=== PATIENT | female | born 2000 | race Caucasian/White ===

== ENCOUNTER → 2021-07-14 | Outpatient (CLI) | payer BC, MEDICAID ==
[~2021-07-14] MED LIST: BPR100T PO; LORA5SOL
--- NOTE | 2021-07-14 17:05 | Diagnostic Imaging Report ---
INDICATION: patient, survey. TECHNIQUE: Multiple real-time grayscale images were obtained over the gravid uterus. COMPARISON: None. FINDINGS: A single live intrauterine fetus is seen measuring 19 weeks 5 days in size by composite measurements. The placenta is anterior with no evidence of previa. The fetus is in breech presentation at this time. Amniotic fluid is qualitatively normal. heart rate is 142 bpm. Cervical length is 4.1 cm. Distance from placental tip to the internal os was 6.5 cm. Maternal adnexa could not be well visualized. survey demonstrated normal-appearing kidneys and bladder. Normal-appearing stomach was seen. Intracranial ventricles appear normal in size. Three-vessel cord and cord insertion were normal. Views of the spine were limited due to position. Biometrical measurements are as follows: Biparietal 4.11 cm, age 18 weeks 4 days. Head circumference 17.64 cm, age 20 weeks 1 days. Abdominal circumference 14.99 cm, age 20 weeks 2 days. Femur length 3.06 cm, age 19 weeks 4 days. Sonographic estimate age: 19 weeks 5 days. Sonographic estimated date of delivery: 12/03/2021. Estimated Weight: 317 gm (+/- 46 gm). LMP percentile: 54%. heart rate: 142 beats per minute. number: 1 of 1. IMPRESSION: Single live intrauterine fetus measuring 19 weeks 5 days in size by composite measurements. There is no detectable abnormality. Views of the spine were limited due to position. Consider followup as clinically warranted. Dictated by: Dictated on workstation # [id number]
== END ==
LOC: RAD 15:00
PROVIDERS: ATTEND Obstetrics & Gynecology
DX: Z34.92 Encounter for supervision of normal pregnancy, unspecified, second trimester (principal); Z3A.19 19 weeks gestation of pregnancy
CPT/HCPCS: 76805

== ENCOUNTER → 2021-09-04 | Outpatient (CLI) | payer BC, MEDICAID ==
--- NOTE | 2021-09-04 16:17 | Diagnostic Imaging Report ---
INDICATION: Follow-up spine. TECHNIQUE: Multiple real-time grayscale images were obtained over the gravid uterus. COMPARISON: 07/14/2021. FINDINGS: There is a single live fetus with heart rate of 134 BPM. spine appears unremarkable on today's exam. IMPRESSION: Unremarkable follow-up ultrasound. Dictated by: Dictated on workstation # [id number]
== END ==
LOC: RAD 14:30
PROVIDERS: ATTEND Obstetrics & Gynecology
DX: Z36.89 Encounter for other specified antenatal screening (principal); Z36.1 Encounter for antenatal screening for raised alphafetoprotein level
CPT/HCPCS: 76816

== ENCOUNTER 2021-11-23 19:09 | Inpatient (IN) | payer BC, MEDICAID ==
[2021-11-23] VITALS (13 sets, daily range): BP systolic 118–132; BP diastolic 58–89
[~2021-11-23] VITALS: Ht 162.6 cm; Wt 104.6 kg
[2021-11-23] MEDS ORDERED: IRON1TAB89 PO (19:36)
[2021-11-23] MEDS ORDERED: ONDA4TAB11 PO (19:36)
[2021-11-23 19:43] LABS: BILIRUBIN,URINE NEGATIVE (NEGATIVE); CLARITY,URINE CLEAR; COLOR,URINE YELLOW; GLUCOSE, URINE (UA) NEGATIVE (NEGATIVE); KETONES,URINE TRACE (NEGATIVE); LEUKOCYTE ESTERASE ,URINE TRACE (NEGATIVE); NITRITE,URINE NEGATIVE (NEGATIVE); PROTEIN,URINE TRACE (NEGATIVE)
[2021-11-23 19:51] LABS: BACTERIA,URINE LARGE /HPF
[2021-11-23] MEDS ORDERED: OXYTOCIN PRE-MIX DRIP 500 ML IV SCH (20:15)
[2021-11-23] MEDS ORDERED: D5 LR IV SOLUTION 1,000 ML IV ONE (20:19)
[2021-11-23] MEDS: D5 LR IV SOLUTION 1,000 ML IV SCH (20:45)
[2021-11-23 20:49] LABS: BASOPHILS % (AUTO) 1 % (0-10); EOSINOPHILS # (AUTO) 0.1 10^3/uL (0.0-0.3); EOSINOPHILS % (AUTO) 1 % (0-10); HEMATOCRIT 42 % (35-52); HEMOGLOBIN 13.2 g/dL (11.5-16.0); LYMPHOCYTES # (AUTO) 1.6 10^3/uL (1.0-4.0); LYMPHOCYTES % (AUTO) 25 % (12-44); MEAN CORPUSCULAR HEMOGLOBIN 28 pg (25-34); MEAN CORPUSCULAR HGB CONC 32 g/dL (32-36); MEAN CORPUSCULAR VOLUME 88 fL (80-99); MEAN PLATELET VOLUME 11.1 fL (9.0-12.2); MONOCYTES # (AUTO) 0.4 10^3/uL (0.0-1.0); MONOCYTES % (AUTO) 6 % (0-12); NEUTROPHILS # (AUTO) 4.2 10^3/uL (1.8-7.8); NEUTROPHILS % (AUTO) 66 % (42-75); PLATELET COUNT 212 10^3/uL (130-400); WHITE BLOOD COUNT 6.4 10^3/uL (4.3-11.0)
[2021-11-23] MEDS ORDERED: OXYTOCIN PRE-MIX DRIP 500 ML IV ONE (21:04)
[2021-11-23] MEDS ORDERED: fentaNYL 2 mcg/ml BUPIVA 0.125 100 ML ONE (23:34)
[2021-11-23] MEDS ORDERED: BUPIVACAINE 0.25% 10 ML (SENSORCAINE) VIAL ONE (23:56)
[2021-11-23] MEDS ORDERED: fentaNYL INJ 100 MCG/2 ML AMP ONE (23:56)
[2021-11-24] VITALS (65 sets, daily range): BP systolic 79–136; BP diastolic 42–97
[2021-11-24] MEDS ORDERED: diphenhydrAMINE 50 MG/ML INJ (BENADRYL) IV PRN (00:30)
[2021-11-24] MEDS ORDERED: LACTATED RINGERS 1,000 ML IV SCH (00:30)
[2021-11-24] MEDS ORDERED: EPIDURAL (fentaNYL 2 MCG/ML BUPIVA 0.125%)100 ML BAG EPI PRN ×2 (00:30→03:00)
[2021-11-24] MEDS ORDERED: NALOXONE 0.4 MG/ML 1 ML (NARCAN) VIAL IV PRN ×3 (00:30→07:15)
[2021-11-24] MEDS ORDERED: METOCLOPRAMIDE INJ 10 MG/2 ML (REGLAN) IV PRN (00:30)
[2021-11-24] MEDS ORDERED: ONDANSETRON 4 MG/2 ML (SDV) Z0FRAN IV PRN (00:30)
[2021-11-24] MEDS: D5 LR IV SOLUTION 1,000 ML IV SCH ×2 (00:41→06:33)
[2021-11-24] MEDS ORDERED: LIDOCAINE/EPI 2% 1:200,00 (XYLOCAINE) 10 ML VIAL ONE (07:06)
--- NOTE | 2021-11-24 07:12 | History & Physical-OB ---
OB - Chief Complaint & HPI Date/Time Date of Admission: Date of Admission: Nov 23, 2021 at 20:00 Date seen by a Provider: Nov 24, 2021 Time Seen by a Provider: 07:10 Chief Complaint/History OB-Reason for Admission/Chief: Rupture of Membranes Hx : 1 Hx Para: 0 Expected Date of Delivery: Dec 03, 2021 Gestational Age in Weeks: 38 Gestational Age in Days: 4 Other reason for admission: Patient admitted in active labor after SROM at home. Admission Nurse Assessment Rev: Yes History of Labs A pos Antibody neg RI RPR NR HBsAg NR HIV NR GC neg GBS neg Allergies and Home Medications Allergies Coded Allergies: NKANo Known Allergies (Verified Allergy, Unknown, 01/05/06) Patient Home Medication List Home Medication List Reviewed: Yes Iron,Carbonyl/Ascorbic Acid (Iron 100-Vitamin C Tablet) 100 Mg-250 Mg Tablet, 1 EACH PO, (Reported) Entered as Reported by: JINNY TAN on 11/23/211935 Last Action: New Order Ondansetron (Ondansetron Odt) 4 Mg Tab.rapdis, 4 MG PO, (Reported) Entered as Reported by: JINNY TAN on 11/23/211935 Last Action: New Order Discontinued Medications Bupropion Hcl (Wellbutrin) 100 Mg Tablet, 1 TAB PO DAILY, (Reported) Discontinued Reason: No Longer Taking Entered as Reported by: SHELL PARKS on 07/10/122129 Last Action: Discontinued OB - History Hx of Present Care: Yes Ultrasounds: Normal mid trimester US Obstetrical Complications: None Medical Complications: None Obstetrical History Hx : 1 Delivery History Hx Blood Disorders: No Patient Past Medical History n/a Social History/Family History Alcohol Use: Denies Use Recreational Drug Use: No 2nd Hand Smoke Exposure: No Immunizations Influenza Vaccine Up-to-Date: No; Not Current OB - Admission Exam Physical Exam Vitals: Vital Signs 11/24/21 11/24/21 11/24/21 02:52 03:53 06:07 Temp 36.0 Pulse 76 Resp 18 B/P (MAP) 115/60 (78) Pulse Ox 96 O2 Delivery Room Air HEENT: NCAT Heart: Rhythm Normal Lungs: Clear Abdomen: Gravid Extremities: Normal Reflexes: Normal Cervical Dilatation: 9cm Effacement: 100% Station: 0 Membranes: Ruptured Amniotic Fluid: Clear Heart Rate: 130's Accelerations: Accelerations Present Decelerations: No Decelerations Short Term Variability: Present Skilled Nursing Variability: Average (6-25) Contractions on Admission: < 5 Minutes Apart Intensity: Firm Labs Laboratory Tests Test 11/23/21 19:30 11/23/21 20:30 Range/Units Urine Color YELLOW Urine Clarity CLEAR Urine pH 8.0 5-9 Urine Specific [place] 1.020 1.016-1.022 Urine Protein TRACE H NEGATIVE Urine Glucose (UA) NEGATIVE NEGATIVE Urine Ketones TRACE H NEGATIVE Urine Nitrite NEGATIVE NEGATIVE Urine Bilirubin NEGATIVE NEGATIVE Urine Urobilinogen 1.0 < = 1.0 MG/DL Urine Leukocyte Esterase TRACE H NEGATIVE Urine RBC (Auto) NEGATIVE NEGATIVE Urine RBC 10-25 H /HPF Urine WBC 10-25 H /HPF Urine Squamous Epithelial Cells 10-25 H /HPF Urine Renal Epithelial Cells NONE /HPF Urine Crystals NONE /LPF Urine Bacteria LARGE H /HPF Urine Casts NONE /LPF Urine Mucus LARGE H /LPF Urine Culture Indicated YES Membranes Rupture POSITIVE White Blood Count 6.4 4.3-11.0 10^3/uL Red Blood Count 4.75 3.80-5.11 10^6/uL Hemoglobin 13.2 11.5-16.0 g/dL Hematocrit 42 35-52 % Mean Corpuscular Volume 88 80-99 fL Mean Corpuscular Hemoglobin 28 25-34 pg Mean Corpuscular Hemoglobin Concent 32 32-36 g/dL Red Cell Distribution Width 21.9 H 10.0-14.5 % Platelet Count 212 130-400 10^3/uL Mean Platelet Volume 11.1 9.0-12.2 fL Immature Granulocyte % (Auto) 1 % Neutrophils (%) (Auto) 66 42-75 % Lymphocytes (%) (Auto) 25 12-44 % Monocytes (%) (Auto) 6 0-12 % Eosinophils (%) (Auto) 1 0-10 % Basophils (%) (Auto) 1 0-10 % Neutrophils # (Auto) 4.2 1.8-7.8 10^3/uL Lymphocytes # (Auto) 1.6 1.0-4.0 10^3/uL Monocytes # (Auto) 0.4 0.0-1.0 10^3/uL Eosinophils # (Auto) 0.1 0.0-0.3 10^3/uL Basophils # (Auto) 0.0 0.0-0.1 10^3/uL Immature Granulocyte # (Auto) 0.1 0.0-0.1 10^3/uL OB - Assessment/Plan/Diagnosis Assessment Assessment: active labor Admission Dx 21 yo @ 38 weeks SROM- Active labor GBS neg Admission Status: Inpatient Order (span 2 midnights) Reason for Inpatient Admission: Active labor at 38 weeks Plan Plan: Expectant Management Other Plan Patient admitted last night 1 cm with SROM. Started on minimal pitocin augmentation of 2 mu and progressed overnight after receiving epidural at about 1200am to complete and 0 station this AM. TIFFANY THOMPSON DO Nov 24, 2021 07:12
[2021-11-24] MEDS ORDERED: TETANUS,DIPTH,PERTUSS P/F (BOOSTRIX) 0.5 ML VIAL IM ONE (07:15)
[2021-11-24] MEDS ORDERED: BENZOCAINE/MENTHOL (DERMOPLAST) 56 ML CAN TP PRN (07:15)
[2021-11-24] MEDS ORDERED: HYDROcodone/APAP 5 MG/325 MG (LORTAB) TAB PO PRN (07:15)
[2021-11-24] MEDS ORDERED: MEASLES,MUMPS,RUBELLA 1 EA INJ SQ ONE (07:15)
[2021-11-24] MEDS ORDERED: WITCH HAZEL(TUCKS) 40 EA JAR TOP PRN (07:15)
[2021-11-24] MEDS ORDERED: DIBUCAINE 1% OINTMENT 30 GM TUBE TOP PRN (07:15)
[2021-11-24] MEDS ORDERED: LIDOCAINE 2% 20 ML (XYLOCAINE) VIAL INJ ONE (07:45)
[2021-11-24] MEDS ORDERED: METHYLERGONOVINE 0.2 MG/ML (METHERGINE) AMP ONE (08:01)
--- NOTE | 2021-11-24 08:20 | OB Labor & Delivery Record ---
L&D History Date of Service Date of Service: Nov 24, 2021 History Expected Date of Delivery: Dec 03, 2021 Gestational Age in Weeks: 38 Hx : 1 Hx Para: 0 Complications Events: Routine care Operative Indications (Cesarea: N/A-Vaginal Delivery Intrapartal Events: None L&D Stage1 Stage One Onset of Labor - Date: Nov 24, 2021 Monitors and Tracing Monitor Mode: External Heart Rate: 130 Monitor Accelerations: Uniform Station: 0 Jail Variability: Average (6-10) Short Term Variability: Present Presentation: Vertex Vital Signs VS - Last 72 Hours, by Label 11/23/21 11/23/21 11/23/21 11/23/21 19:41 20:10 20:48 21:11 Temp 37.2 37.2 37.2 36.6 Pulse 117 117 117 91 Resp 20 20 20 20 B/P (MAP) 118/77 (91) 132/82 (99) Pulse Ox 96 96 96 O2 Delivery Room Air Room Air Room Air Room Air 11/23/21 11/23/21 11/23/21 11/23/21 21:25 21:40 21:55 22:10 Pulse 92 90 87 96 Resp 20 20 20 20 B/P (MAP) 131/89 (103) 130/85 (100) 128/80 (96) 128/83 (98) O2 Delivery Room Air Room Air Room Air Room Air 11/23/21 11/23/21 11/23/21 11/23/21 22:25 22:40 22:55 23:10 Pulse 103 88 88 78 Resp 20 20 20 20 B/P (MAP) 126/71 (89) 128/68 (88) 127/66 (86) 124/71 (88) O2 Delivery Room Air Room Air Room Air Room Air 11/23/21 11/24/21 11/24/21 11/24/21 23:30 00:00 00:02 00:05 Temp 36.6 Pulse 104 109 89 93 Resp 20 20 20 20 B/P (MAP) 128/58 (81) 136/97 (110) 129/70 (89) 132/74 (93) Pulse Ox 97 98 O2 Delivery Room Air Room Air Room Air Room Air 11/24/21 11/24/21 11/24/21 11/24/21 00:08 00:11 00:12 00:14 Pulse 100 100 99 100 Resp 20 20 20 20 B/P (MAP) 122/73 (89) 134/64 (87) 122/60 (80) 114/59 (77) Pulse Ox 98 97 98 97 O2 Delivery Room Air Room Air Room Air Room Air 11/24/21 11/24/21 11/24/21 11/24/21 00:19 00:21 00:23 00:27 Pulse 102 105 108 95 Resp 20 20 20 20 B/P (MAP) 113/60 (77) 104/57 (73) 97/56 (70) 106/58 (74) Pulse Ox 98 97 97 97 O2 Delivery Room Air Room Air Room Air Room Air 11/24/21 11/24/21 11/24/21 11/24/21 00:30 00:33 00:37 00:43 Temp 36.0 Pulse 96 86 97 93 Resp 20 20 20 B/P (MAP) 108/60 (76) 107/59 (75) 106/53 (70) Pulse Ox 98 98 99 97 O2 Delivery Room Air Room Air Room Air 11/24/21 11/24/21 11/24/21 11/24/21 01:03 01:10 01:15 01:20 Pulse 99 88 79 129 Resp 20 20 20 20 B/P (MAP) 92/46 (61) 79/42 (54) 87/53 (64) 104/62 (76) Pulse Ox 99 100 97 O2 Delivery Room Air Room Air Room Air Room Air 11/24/21 11/24/21 11/24/21 11/24/21 01:26 01:30 01:36 01:41 Pulse 127 99 93 93 Resp 20 20 20 20 B/P (MAP) 99/56 (70) 109/61 (77) 107/55 (72) 106/56 (73) Pulse Ox 97 97 97 97 O2 Delivery Room Air Room Air Room Air Room Air 11/24/21 11/24/21 11/24/21 11/24/21 01:46 01:50 01:56 02:00 Pulse 87 85 91 92 Resp 18 18 18 18 B/P (MAP) 105/57 (73) 110/57 (74) 107/55 (72) 94/51 (65) Pulse Ox 98 97 97 97 O2 Delivery Room Air Room Air Room Air Room Air 11/24/21 11/24/21 11/24/21 11/24/21 02:06 02:25 02:38 02:52 Pulse 85 83 96 91 Resp 18 18 18 18 B/P (MAP) 108/55 (72) 100/53 (69) 92/52 (65) 87/46 (60) Pulse Ox 96 96 95 96 O2 Delivery Room Air Room Air Room Air Room Air 11/24/21 11/24/21 11/24/21 11/24/21 03:04 03:07 03:22 03:37 Pulse 103 98 101 92 Resp 18 18 18 18 B/P (MAP) 98/51 (67) 101/54 (70) 104/56 (72) 104/57 (73) O2 Delivery Room Air Room Air Room Air Room Air 11/24/21 11/24/21 11/24/21 11/24/21 03:53 04:08 04:24 04:38 Temp 36.0 Pulse 98 88 89 95 Resp 18 18 18 18 B/P (MAP) 111/53 (72) 110/58 (75) 108/58 (75) 107/58 (74) O2 Delivery Room Air Room Air Room Air Room Air 11/24/21 11/24/21 11/24/21 11/24/21 04:52 05:08 05:21 05:37 Pulse 114 100 83 81 Resp 18 18 18 18 B/P (MAP) 89/55 (66) 100/55 (70) 109/60 (76) 110/61 (77) O2 Delivery Room Air Room Air Room Air Room Air 11/24/21 11/24/21 11/24/21 11/24/21 05:51 06:07 06:22 06:37 Pulse 77 76 80 81 Resp 18 18 18 18 B/P (MAP) 113/60 (77) 115/60 (78) 121/62 (81) 116/66 (83) O2 Delivery Room Air Room Air Room Air Room Air 11/24/21 06:53 Pulse 89 Resp 18 B/P (MAP) 124/70 (88) O2 Delivery Room Air Rupture of Membranes Spontaneous Ruture of Membrane: Yes Amniotic Membrane Rupture Time: 1830 Amniotic Membrane Fluid Desc.: Clear Vaginal Bleeding Description: Normal Show Induction/Anesthesia Epidural Cath Placement - Time: 10 Progress/Notes Patient presented in active labor. She progressed to complete and +2 station with minimal augmentation of labor with 2 mu pitocin. She received an epidural at around midnight. L&D Stage2 Monitors and Tracing Monitor Mode: External Heart Rate: 130 Monitor Accelerations: Uniform Monitor Decelerations: Variable Jail Variability: Average (6-10) Short Term Variability: Present Position: Right Occiput Anterior Presentation: Vertex Signs of Distress by FHT Signs of Distress nuchal cord reduced x 1 Cord Descript/Complications Cord Vessel Description: 3 Vessels Delivery Type Infant Delivery Method: Spontaneous Vaginal Anterior Shoulder: Left Episiotomy/Perineal Laceration Laceraction(s)/Extensions: Yes Episiotomy Description: Vaginal Extension/lac Degree (describe repair) vaginal laceration repaired using 3-0 rapide vicryl in usual fashion Condition of Infant Delivery 1 minute Comment: 8 5 minute Comment: 9 Notes Live male weight pending. Condition of Condition of Infant: Living Exam: No Observed Abnormalities Resuscitation Resuscitation: N/A - Spontaneous Resp L&D Stage3 Stage Three Stage III Date: Nov 24, 2021 Pictocin Pitocin Administration mu/min: 2 Pitocin ml/hr: 2 Pitocin Administration Comment: 30 mu wide open after delivery of placenta Placenta Delivery Placenta Delivery: Spontaneous Delivery Summary Summary Estimated blood loss (mL): 300 Attending at delivery: Tiffany Thompson DO Condition of Delivery Examined: Cervix Examined, Uterus Explored Post Hemorrhage: No Condition of Mother stable Condition of (s) stable TIFFANY THOMPSON DO Nov 24, 2021 08:20
--- NOTE | 2021-11-24 08:22 | Discharge Inst-Women's Service ---
Discharge Inst-Women's Serv Depart Medication/Instructions New, Converted or Re-Newed RX: Transmitted to Pharmacy Final Diagnosis PPD 1 NVD Problems Reviewed?: Yes Consults/Follow Up Additional Follow Up: Yes Orders/Referrals Dr. Thompson/ Daniella/Erica in 6 weeks Activity Activity: Activity as Tolerated Driving Instructions: No Driving for 1 Week NO SMOKING: NO SMOKING Nothing Inside Vagina: No Douching, No [place], No Tampons Diet Discharge Diet: No Restrictions Symptoms to Report to : Bleeding Excessive, Pain Increased, Fever Over 101 Degrees F, Vaginal Bleeding Increase, Questions/Concerns For Any Problems or Questions: Contact Your Physician TIFFANY THOMPSON DO Nov 24, 2021 08:22
[2021-11-24] MEDS ORDERED: DOCU100C37 PO (08:24)
[2021-11-24] MEDS ORDERED: BENZ78AE5 TP (08:24)
[2021-11-24] MEDS ORDERED: IBUP-844 PO (08:24)
[2021-11-24] MEDS ORDERED: ACHD5005 PO (08:24)
[2021-11-24] MEDS ORDERED: PNV1TABL67 PO (08:24)
[2021-11-24] MEDS ORDERED: FERR325T24 PO (08:24)
[2021-11-24] MEDS: OXYTOCIN PRE-MIX DRIP 500 ML IV SCH (08:27)
[2021-11-24] MEDS: DOCUSATE SODIUM 100 MG (COLACE) CAP PO SCH ×2 (09:01→19:59)
[2021-11-24] MEDS: FERROUS SULF 325 MG (IRON) TAB PO SCH (09:01)
[2021-11-24] MEDS: IBUPROFEN 600 MG (MOTRIN) TAB PO SCH ×3 (09:02→19:59)
[2021-11-24] MEDS ORDERED: CATHETER FLUSH 10 ML SYR IV SCH (14:00)
[2021-11-25] MEDS: IBUPROFEN 600 MG (MOTRIN) TAB PO SCH ×2 (03:50→10:14)
[2021-11-25 04:00] VITALS: BP 114/61
[2021-11-25] MEDS: OXYTOCIN PRE-MIX DRIP 500 ML IV SCH (05:08)
[2021-11-25 06:23] LABS: HEMOGLOBIN 10.3 g/dL (11.5-16.0); MEAN CORPUSCULAR VOLUME 90 fL (80-99); MEAN PLATELET VOLUME 11.4 fL (9.0-12.2)
[2021-11-25 06:26] LABS: BASOPHILS # (AUTO) 0.1 10^3/uL (0.0-0.1); BASOPHILS % (AUTO) 1 % (0-10); EOSINOPHILS # (AUTO) 0.1 10^3/uL (0.0-0.3); EOSINOPHILS % (AUTO) 1 % (0-10); HEMATOCRIT 33 % (35-52); LYMPHOCYTES # (AUTO) 2.2 10^3/uL (1.0-4.0); LYMPHOCYTES % (AUTO) 26 % (12-44); MEAN CORPUSCULAR HEMOGLOBIN 28 pg (25-34); MEAN CORPUSCULAR HGB CONC 31 g/dL (32-36); MONOCYTES # (AUTO) 0.5 10^3/uL (0.0-1.0); MONOCYTES % (AUTO) 6 % (0-12); NEUTROPHILS # (AUTO) 5.4 10^3/uL (1.8-7.8); NEUTROPHILS % (AUTO) 66 % (42-75); PLATELET COUNT 148 10^3/uL (130-400); WHITE BLOOD COUNT 8.2 10^3/uL (4.3-11.0)
[2021-11-25] MEDS ORDERED: PRENATAL VITAMIN 1 EA TAB PO SCH (07:00)
--- NOTE | 2021-11-25 09:28 | Postpartum Progress Note ---
Note Note Day # 1 Subjective: Patient is without complaints. Ambulating, voiding. Tolerating a regular diet without nausea or vomiting. Normal lochia. Pain is well controlled with oral pain medications. Physical Exam: General - Alert and oriented, no apparent distress Abdomen - Soft, appropriately tender to palpation, non-distended, fundus firm at umbilicus Extremities - no edema, negative Carl's bilaterally Assessment: Post- day # 1, status post vaginal delivery. Recovering well, hemodynamically stable Acute blood loss anemia Plan: Routine care. Encourage breast feeding. Encourage ambulation. Ferrous sulfate supplementation. Plan for discharge today Vitals - Labs Vital Signs - I&O Vital Signs Date Time Temp Pulse Resp B/P (MAP) Pulse Ox O2 Delivery O2 Flow Rate FiO2 11/25/21 04:00 36.0 86 20 114/61 (78) Room Air 11/24/21 23:37 36.5 86 20 104/62 (76) Room Air 11/24/21 20:00 36.5 101 20 113/56 (75) 98 Room Air 11/24/21 16:00 36.5 96 20 113/60 (77) 96 Room Air 11/24/21 13:07 36.0 91 18 128/74 (92) 96 Room Air 11/24/21 10:30 36.3 89 110/59 (76) 11/24/21 10:15 91 112/57 (75) 11/24/21 10:00 88 115/60 (78) 11/24/21 09:45 90 16 110/59 (76) Room Air 11/24/21 09:30 96 114/61 (78) Room Air I & O 11/25/21 07:00 Intake Total 1800 ml Balance 1800 ml Labs Laboratory Tests 11/25/21 05:33: White Blood Count 8.2, Red Blood Count 3.65L, Hemoglobin 10.3#L, Hematocrit 33L, Mean Corpuscular Volume 90, Mean Corpuscular Hemoglobin 28, Mean Corpuscular Hemoglobin Concent 31L, Red Cell Distribution Width 21.6H, Platelet Count 148, Mean Platelet Volume 11.4, Immature Granulocyte % (Auto) 1, Neutrophils (%) (Auto) 66, Lymphocytes (%) (Auto) 26, Monocytes (%) (Auto) 6, Eosinophils (%) (Auto) 1, Basophils (%) (Auto) 1, Neutrophils # (Auto) 5.4, Lymphocytes # (Auto) 2.2, Monocytes # (Auto) 0.5, Eosinophils # (Auto) 0.1, Basophils # (Auto) 0.1, Immature Granulocyte # (Auto) 0.0, Percent Immature Platelet Fraction 7.1 Microbiology 11/23/21 Urine Culture - Preliminary, Resulted Gram Pos Mixed Bacterial Ryann WILIAM LUQUE [employer]AKER [employer] Nov 25, 2021 09:28
[2021-11-25 10:00] VITALS: BP 121/67
[2021-11-25] MEDS: DOCUSATE SODIUM 100 MG (COLACE) CAP PO SCH (10:14)
[2021-11-25] MEDS: FERROUS SULF 325 MG (IRON) TAB PO SCH (10:14)
== END 2021-11-25 14:15 | disposition home or self-care (01) | DRG 806 ==
LOC: LDRP 19:09 → WSo 19:09 → LDRP 20:00
PROVIDERS: ADMIT Obstetrics & Gynecology; ATTEND Obstetrics & Gynecology
PROC: 10E0XZZ Delivery of Products of Conception, External Approach (ICD-10-PCS; principal; 2021-11-24)
PROC: 0HQ9XZZ Repair Perineum Skin, External Approach (ICD-10-PCS; 2021-11-24)
DX: O69.81X0 Labor and delivery complicated by cord around neck, without compression, not applicable or unspecified (principal); O71.4 Obstetric high vaginal laceration alone; Z37.0 Single live birth; D62 Acute posthemorrhagic anemia; Z3A.38 38 weeks gestation of pregnancy; O90.81 Anemia of the puerperium
CPT/HCPCS: 36415; 81000; 84112; 85025; 86850; 86900; 86901; 87088; 99212

== ENCOUNTER 2022-05-28 17:34 | Emergency (ER) | payer BC, MEDICAID ==
[~2022-05-28] VITALS: Ht 162 cm; Wt 88.0 kg
[~2022-05-28 17:34] MED LIST changes: +ACHD5005 PO; +BENZ78AE5 TP; +DOCU100C37 PO; +FERR325T24 PO; +IBUP-844 PO; +IRON1TAB89 PO; +ONDA4TAB11 PO; +PNV1TABL67 PO
[2022-05-28 17:41] VITALS: BP 116/79
== END 2022-05-28 19:29 | disposition left against medical advice (07) ==
LOC: EDUNIT# 17:34 → ER 17:38
DX: R10.30 Lower abdominal pain, unspecified (principal)